=== PATIENT | male | born 1990 | race Caucasian/White ===

== ENCOUNTER 2023-05-20 06:17 | Day surgery (SDC) | payer OTHER ==
[~2023-05-20] VITALS: Ht 172.7 cm; Wt 74.8 kg
== END 2023-05-20 14:50 | disposition home or self-care (01) ==
LOC: CIR.AMB 06:17
PROVIDERS: ATTEND Surgery
DX: K81.1 Chronic cholecystitis (principal); Z20.822 Contact with and (suspected) exposure to COVID-19